=== PATIENT | female | born 1985 | race African-American/Black ===

== ENCOUNTER 2018-03-12 03:03 | Observation (INO) | payer MEDICAID ==
[~2018-03-12] VITALS: Ht 170.2 cm; Wt 77.1 kg
[~2018-03-12 03:03] MED LIST: PREN-96 PO
[2018-03-12] MEDS ORDERED: MAGNESIUM SULFATE 40MG/ML 1,000 ML IV ONE (03:19)
[2018-03-12] MEDS ORDERED: LABETALOL HCL 5 MG/ML 4ML SYRINGE IV ONE (03:19)
[2018-03-12] MEDS ORDERED: MAGNESIUM SULFATE 100 ML IV ONE (03:19)
[2018-03-12] MEDS ORDERED: hydrALAZINE HCL 20 MG/ML VL ONE ×2 (03:19→04:14)
[2018-03-12] MEDS ORDERED: MAGNESIUM SULFATE 100 ML IV STA (03:23)
[2018-03-12] MEDS ORDERED: MAGNESIUM SULFATE 40MG/ML 1,000 ML IV SCH (03:23)
[2018-03-12] MEDS: hydrALAZINE HCL 20 MG/ML VL IV PRN ×5 (03:32→04:32)
[2018-03-12 03:51] LABS: Urine Bacteria MANY /hpf (None Seen); Urine Blood 1+ /uL (Negative); Urine Hyaline Cast FEW /lpf (0 - 2); Urine Mucus FEW (None Seen); Urine WBC 11 /hpf (0 - 5)
[2018-03-12 03:59] LABS: Basophils # (auto) 0.1 uL; Basophils % (auto) 0.6 % (0.0-2.0); Eosinophils # (auto) 0.1 uL; Eosinophils % (auto) 0.8 % (0.0-7.0); Hematocrit 36.3 % (36.0-46.0); Hemoglobin 11.9 g/dL (12.2-16.2); Lymphocytes # (auto) 2.7 uL; Lymphocytes % (auto) 20.6 % (10.0-50.0); Mean Corpuscular Hemoglobin 28.1 pg (28.0-32.0); Mean Corpuscular Hgb Conc. 32.9 g/dL (32.0-36.0); Mean Corpuscular Volume 85.5 fL (80.0-100.0); Monocytes % (auto) 7.9 % (0.0-12.0); Neutrophils # (auto) 9.1 uL; Neutrophils % (auto) 70.1 % (37.0-80.0); Nucleated Red Blood Cells % 0.2 %; Platelet Count (auto) 172 10^3/uL (140-450); Red Blood Cells 4.24 10^6/uL (4.0-5.20); Red Cell Distribution Width 13.5 % (11.8-14.3)
[2018-03-12 04:00] LABS: Alcohol, Urine < 3.0 mg/dL (0-5); Amphetamine Screen, Urine POSITIVE (NEGATIVE); Barbiturate Scree,Urine NEGATIVE (NEGATIVE); Benzodiazephine Screen, Urine NEGATIVE (NEGATIVE); Cannabinoid Screen, Urine NEGATIVE (NEGATIVE); Cocaine Screen, Urine NEGATIVE (NEGATIVE); Opiate Scree,Urine NEGATIVE (NEGATIVE); Phencyclidine Screen, Urine NEGATIVE (NEGATIVE)
[2018-03-12] MEDS ORDERED: AMPICILLIN SOD 2GM INJ 2 GM in SODIUM CHL 0.9% 100 ML IV ONE (04:00)
[2018-03-12] MEDS ORDERED: BETAMETHASONE ACET (6MG/ML) 5ML VIAL IM ONE (04:00)
[2018-03-12 04:12] LABS: INR < 0.80 (0.9-1.15)
[2018-03-12 04:15] LABS: Albumin 2.3 g/dL (3.4-5.0); Calcium 8.6 mg/dL (8.5-10.1); Potassium 4.2 mmol/L (3.5-5.1)
[2018-03-12 04:19] LABS: BUN/Creatinine Ratio 15.7; Bilirubin, Total 0.3 mg/dL (0.2-1.0); Total Protein 6.2 g/dL (6.4-8.2)
[2018-03-12] MEDS ORDERED: AMPICILLIN SOD 1 GM VL ONE (04:21)
[2018-03-12] MEDS ORDERED: LABETALOL HCL 5 MG/ML ML 20ML VIAL IV ONE ×2 (05:00→06:00)
[2018-03-14 07:05] LABS: RPR Non Reactive (Non Reactive)
[2018-03-14 13:06] LABS: Rubella Antibodies, IgG 4.96 index (Immune >0.99)
== END 2018-03-12 06:19 | disposition short-term general hospital (02) | DRG 566 ==
LOC: LDRP 03:03
PROVIDERS: ADMIT Obstetrics & Gynecology; ATTEND Obstetrics & Gynecology
DX: O26.893 Other specified pregnancy related conditions, third trimester (principal); O24.419 Gestational diabetes mellitus in pregnancy, unspecified control; E07.9 Disorder of thyroid, unspecified; O99.283 Endocrine, nutritional and metabolic diseases complicating pregnancy, third trimester; F12.90 Cannabis use, unspecified, uncomplicated; O99.313 Alcohol use complicating pregnancy, third trimester; F14.929 Cocaine use, unspecified with intoxication, unspecified; O99.333 Smoking (tobacco) complicating pregnancy, third trimester; F17.210 Nicotine dependence, cigarettes, uncomplicated; H53.9 Unspecified visual disturbance; R10.30 Lower abdominal pain, unspecified; R51 Headache; O21.2 Late vomiting of pregnancy; Z3A.34 34 weeks gestation of pregnancy
CPT/HCPCS: 36415; 51702; 59025; 76805; 80053; 80307; 81001; 81002; 84550; 85025; 85362; 85379; 85610; 85730; 86592; 86762; 86850; 86900; 86901; 94760; 96365; 96366; 96372; 96375; 96376; G0378; J0290; J0360; J0702; J3475; J3490; 96361; 96374; J7060

== ENCOUNTER 2020-02-16 01:07 | Emergency (ER) | payer MEDICAID ==
[~2020-02-16] VITALS: Ht 170.2 cm; Wt 72.6 kg
[2020-02-16 01:23] VITALS: BP 130/83
[2020-02-16 01:54] LABS: Basophils # (auto) 0.1 10 ^3/uL (0-0.2); Basophils % (auto) 0.8 % (0.0-2.0); Eosinophils # (auto) 0 10 ^3/uL (0-0.8); Eosinophils % (auto) 0.4 % (0.0-7.0); Hematocrit 45.5 % (36.0-46.0); Lymphocytes # (auto) 1.9 10 ^3/uL (0.4-5.4); Lymphocytes % (auto) 21.8 % (10.0-50.0); Mean Corpuscular Hemoglobin 29.5 pg (28.0-32.0); Mean Corpuscular Volume 89.3 fL (80.0-100.0); Monocytes # (auto) 0.4 10 ^3/uL (0-1.3); Monocytes % (auto) 5.2 % (0.0-12.0); Neutrophils # (auto) 6.2 10 ^3/uL (1.6-8.6); Neutrophils % (auto) 71.8 % (37.0-80.0); Nucleated Red Blood Cells % 0.1 %; Platelet Count (auto) 257 10^3/uL (140-450); Red Cell Distribution Width 14.6 % (11.8-14.3); White Blood Cell 8.6 10^3/uL (4.4-10.8)
[2020-02-16 02:09] LABS: INR 1.12 (0.9-1.15); Partial Thromboplastin Time 24.7 sec (23.0-31.2)
[2020-02-16 02:10] LABS: Albumin 3.3 g/dL (3.4-5.0); Anion Gap 5 (5-15); BUN/Creatinine Ratio 15.6; Blood Urea Nitrogen 22 mg/dL (7-18); Calcium 8.5 mg/dL (8.5-10.1); Carbon Dioxide 26 mmol/L (21-32); Chloride 106 mmol/L (98-107); GFR African American 55 mL/min; GFR Non-African American 45 mL/min; Glucose 132 mg/dL (74-106); Potassium 4.1 mmol/L (3.5-5.1); Sodium 137 mmol/L (136-145)
[2020-02-16 02:15] LABS: Alanine Aminotransferase 63 U/L (13-56); Alkaline Phosphatase 126 U/L (45-117); Aspartate Aminotransferase 32 U/L (15-37); Bilirubin, Total 0.8 mg/dL (0.2-1.0); Total Protein 6.5 g/dL (6.4-8.2)
== END 2020-02-16 03:26 | disposition left against medical advice (07) ==
LOC: ER 01:08
DX: R06.02 Shortness of breath (principal); Z53.21 Procedure and treatment not carried out due to patient leaving prior to being seen by health care provider
CPT/HCPCS: 36415; 71045; 80053; 83880; 84484; 85025; 85610; 85730; 93005